=== PATIENT | female | born 1990 | race American Indian/Alaskan Native ===

== ENCOUNTER 2021-06-11 17:43 | Emergency (ER) | payer MEDICAID ==
[2021-06-11 18:08] VITALS: BP 117/69
[2021-06-11] MEDS ORDERED: ONDANSETRON 4 MG ODT TAB PO ONE (18:11)
[2021-06-11] MEDS ORDERED: LOPERAMIDE 2 MG CAP PO ONE (18:11)
--- NOTE | 2021-06-11 18:15 | Emergency Department Report ---
ED N/V/D HPI - General Chief complaint: Nausea/Vomiting/Diarrhea Stated complaint: weak dehydrated Time Seen by Provider: 06/11/21 18:11 Source: patient Mode of arrival: Ambulatory Limitations: No Limitations - History of Present Illness Initial comments: 31 year old female with past medical hx of DM and s/p pacemaker placement 2 yrs ago secondary to heart block during presents to ED today with complaints of nausea, vomiting and diarrhea and feeling dehydrated. Pt states her symptoms started yesterday. She reports 3 episodes of diarrhea today so far and about 3-4 episodes of vomiting today so far. She reports no coffee ground emesis, hematemsis, hematoschezia or melana. She was having some abdominal discomfort but she states this has resolved. She denies fever or chills. She states her daughter had similar symptoms she caught it from her daughter. She denies any UTI symptoms, vag symptoms or any additional symptoms at this time. MD complaint: nausea, vomiting, diarrhea -: days(s) (1) - Related Data Previous Rx's Medication Instructions Recorded Last Taken Type Ondansetron [Zofran Odt] 4 mg PO Q8HR #15 tab.rapdis 06/11/21 Unknown Rx Allergies Allergy/AdvReac Type Severity Reaction Status Date / Time Penicillins AdvReac Severe Anaphylaxis Verified 06/11/21 18:05 clindamycin AdvReac Anaphylaxis Verified 06/11/21 18:05 ED Review of Systems ROS: Stated complaint: weak dehydrated Other details as noted in HPI Comment: All other systems reviewed and negative Constitutional: denies: chills, fever Eyes: denies: eye pain, eye discharge, vision change ENT: denies: ear pain, throat pain Respiratory: denies: cough, orthopnea, shortness of breath, SOB with exertion, SOB at rest, stridor, wheezing Cardiovascular: denies: chest pain, palpitations, dyspnea on exertion, edema, syncope, paroxysmal nocturnal dyspnea Gastrointestinal: nausea, vomiting, diarrhea. denies: abdominal pain, constipation, hematemesis, melena, hematochezia Genitourinary: denies: urgency, dysuria, frequency, hematuria, discharge, abnormal menses, dyspareunia Musculoskeletal: denies: back pain, joint swelling, arthralgia Skin: denies: rash, lesions, change in color, change in hair/nails, pruritus Neurological: denies: headache, weakness, numbness, paresthesias, confusion, abnormal gait, vertigo Psychiatric: denies: anxiety, depression, auditory hallucinations, visual hallucinations, homicidal thoughts, suicidal thoughts Hematological/Lymphatic: denies: easy bleeding, easy bruising, swollen glands ED Past Medical Hx - Past Medical History Previous Medical History?: Yes Hx Diabetes: Yes Additional medical history: pacemaker - Surgical History Past Surgical History?: Yes Hx Pacemaker: Yes - Social History Smoking Status: Current Every Day Smoker Substance Use Type: None - Medications Home Medications: Home Medications Medication Instructions Recorded Confirmed Last Taken Type Ondansetron [Zofran Odt] 4 mg PO Q8HR #15 tab.rapdis 06/11/21 Unknown Rx ED Physical Exam - General Limitations: No Limitations General appearance: alert, in no apparent distress, obese - Head Head exam: Present: atraumatic, normocephalic, normal inspection - Eye Eye exam: Present: normal appearance, PERRL, EOMI Pupils: Present: normal accommodation - ENT ENT exam: Present: normal exam, mucous membranes moist - Neck Neck exam: Present: normal inspection, full ROM - Respiratory Respiratory exam: Present: normal lung sounds bilaterally. Absent: respiratory distress, wheezes, rales, rhonchi, stridor - Cardiovascular Cardiovascular Exam: Present: regular rate, normal rhythm, normal heart sounds - GI/Abdominal GI/Abdominal exam: Present: soft. Absent: distended, tenderness, guarding, rebound - Neurological Exam Neurological exam: Present: alert, oriented X3, CN II-XII intact, normal gait - Psychiatric Psychiatric exam: Present: normal affect, normal mood ED Course Vital Signs 06/11/21 18:06 Temperature 98.0 F Pulse Rate 61 Respiratory 18 Rate Blood Pressure 117/69 O2 Sat by Pulse 95 Oximetry ED Medical Decision Making - Medical Decision Making 31 year old female with past medical hx of DM and s/p pacemaker placement 2 yrs ago secondary to heart block during presents to ED today with complaints of nausea, vomiting and diarrhea and feeling dehydrated. Pt states her symptoms started yesterday. She reports 3 episodes of diarrhea today so far and about 3-4 episodes of vomiting today so far. She reports no coffee ground emesis, hematemsis, hematoschezia or melana. She was having some abdominal discomfort but she states this has resolved. She denies fever or chills. She states her daughter had similar symptoms she caught it from her daughter. She denies any UTI symptoms, vag symptoms or any additional symptoms at this time. Patient is well-appearing, nontoxic and not in any acute distress. She is neurologically intact with a normal gait. Patient appears well-hydrated. She has a soft nontender abdomen. Her vital signs are stable. Her fingerstick blood sugar is 225. I do not suspect severe dehydration, metabolic abnormality including DKA, appendicitis, pancreatitis, diverticulitis, sepsis or any other emergent conditions warranting testing at this time. Suspect patient symptoms related to a viral gastroenteritis at this time. Patient for any IV fluids, labs or any additional work-up at this time. Discussed suspected diagnosis and treatment plan with patient. Patient expressed understanding of instructions and agree with plan. Patient stable at time of discharge. Critical care attestation.: If time is entered above; I have spent that time in minutes in the direct care of this critically ill patient, excluding procedure time. ED Disposition Clinical Impression: Gastroenteritis Disposition: 01 HOME / SELF CARE / HOMELESS Is pt being admited?: No Does the pt Need Aspirin: No Condition: Stable Instructions: Viral Gastroenteritis, Adult, [id number] Additional Instructions: I recommend taking the zofran as prescribed for nausea and vomiting and I recommend taking immodium for diarrhea. I recommend bland diet and drinking lots of fluids. I recommend close follow up with PCP. Return to ED if worse. Prescriptions: Ondansetron [Zofran Odt] 4 mg PO Q8HR #15 tab.rapdis Referrals: EDITA CAMACHO MD [Staff Physician] - 3-5 Days [facility] [Provider Group] - 3-5 Days Forms: Work/School Release Form(ED) Time of Disposition: 18:19
== END 2021-06-11 19:15 | disposition home or self-care (01) ==
LOC: ED 17:43
DX: K52.9 Noninfective gastroenteritis and colitis, unspecified (principal); E11.8 Type 2 diabetes mellitus with unspecified complications; Z98.890 Other specified postprocedural states; F17.200 Nicotine dependence, unspecified, uncomplicated; Z88.0 Allergy status to penicillin; Z88.1 Allergy status to other antibiotic agents
CPT/HCPCS: 82962; 99282; Q0162

== ENCOUNTER 2021-09-24 19:45 | Emergency (ER) | payer MEDICAID ==
[2021-09-24 22:01] VITALS: BP 124/88
--- NOTE | 2021-09-24 22:51 | XRay Report ---
CHEST 2 VIEWS INDICATION / CLINICAL INFORMATION: Evaluate for possible displacement of pacemaker. Patient reports popping sensation along chest at sit e of pacemaker prior to arrival to ED. COMPARISON: None available. FINDINGS: SUPPORT DEVICES: A single lead right pacemaker is in expected position. HEART / MEDIASTINUM: No significant abnormality. LUNGS / PLEURA: No significant pulmonary abnormality. No significant pleural effusion. No pneumothora x. ADDITIONAL FINDINGS: No significant additional findings. IMPRESSION: 1. No acute abnormality of the chest. Signer Name: Jesus Chen MD Signed: 09/24/2021 10:47 PM Workstation Name: [id number]
== END 2021-09-25 03:00 | disposition left against medical advice (07) ==
LOC: ED 19:45
DX: Z00.00 Encounter for general adult medical examination without abnormal findings (principal); Z53.21 Procedure and treatment not carried out due to patient leaving prior to being seen by health care provider
CPT/HCPCS: 71046

== ENCOUNTER 2022-01-13 18:05 | Emergency (ER) | payer MEDICAID ==
[2022-01-13 20:15] VITALS: BP 118/71
[2022-01-13] MEDS ORDERED: METOCLOPRAMIDE 10 MG TAB PO ONE (22:13)
[2022-01-13] MEDS ORDERED: FAMOTIDINE 20 MG TAB PO ONE (22:13)
[2022-01-13 22:49] LABS: Bilirubin,Urine NEG (Negative); Blood,Urine NEG (Negative); Color,Urine Amber (Yellow); Hyaline Casts,Urine 1 /LPF; Mucus,Urine 2+ /HPF; Protein,Urine <15 mg/dL mg/dL (Negative); Urobilinogen,Urine < 2.0 mg/dL (<2.0)
[2022-01-13 22:50] LABS: HCG Qualitative,Urine Negative (Negative)
--- NOTE | 2022-01-13 23:09 | Emergency Department Report ---
ED N/V/D HPI - General Chief complaint: Nausea/Vomiting/Diarrhea Stated complaint: NAUSEA/VOMITING Source: patient Mode of arrival: Ambulatory Limitations: No Limitations - History of Present Illness Initial comments: Patient is a 31-year-old -[place] female with past medical history [id number] diabetes and cardiac arrhythmia s/p pacemaker placement who presents to the ED with complaint of acute onset persistent intermittent nausea and vomiting for the last 2 days. Patient states that she is unable to keep anything down in the last 24 hours, and that she has not been able to keep anything down in the last 24 hours. The patient stated that she has had more episodes of nausea and vomiting. Patient denies dizziness, diarrhea, fever, chills, chest pain, dysuria, urinary urgency and frequency, sore throat, headache, lightheadedness, syncope or cough. MD complaint: nausea, vomiting -: Sudden, days(s) (2) Description of Vomiting: food contents, watery, bilious Associated Abdominal Pain: No Location: diffuse Radiation: none Severity: moderate Pain Scale: 5 Quality: dull Consistency: intermittent Improves with: none Worsens with: eating, vomiting Context: possible food poisoning Associated Symptoms: denies other symptoms, loss of appetite, malaise, nausea/vomiting. denies: myalgias, chest pain, cough, diaphoresis, fever/chills, headaches, rash, dysuria, shortness of breath, syncope, weakness - Related Data Previous Rx's Medication Instructions Recorded Last Taken Type Ondansetron [Zofran Odt] 4 mg PO Q8HR #15 tab.rapdis 06/11/21 Unknown Rx Dicyclomine [Bentyl] 20 mg PO Q6H PRN #24 tablet 01/13/22 Unknown Rx Famotidine [Pepcid] 20 mg PO BID #30 tablet 01/13/22 Unknown Rx Ondansetron [Zofran Odt] 4 mg PO Q6HR PRN #20 tab.rapdis 01/13/22 Unknown Rx Allergies Allergy/AdvReac Type Severity Reaction Status Date / Time Penicillins AdvReac Severe Anaphylaxis Verified 06/11/21 18:05 clindamycin AdvReac Anaphylaxis Verified 06/11/21 18:05 ED Review of Systems ROS: Stated complaint: NAUSEA/VOMITING Other details as noted in HPI Constitutional: denies: chills, fever Eyes: denies: eye pain, eye discharge, vision change ENT: denies: ear pain, throat pain Respiratory: denies: cough, shortness of breath, wheezing Cardiovascular: denies: chest pain, palpitations Endocrine: no symptoms reported Gastrointestinal: nausea, vomiting. denies: abdominal pain, diarrhea Genitourinary: denies: urgency, dysuria, discharge Musculoskeletal: denies: back pain, joint swelling, arthralgia Skin: denies: rash, lesions Neurological: denies: headache, weakness, paresthesias Psychiatric: denies: anxiety, depression Hematological/Lymphatic: denies: easy bleeding, easy bruising ED Past Medical Hx - Past Medical History Hx Diabetes: Yes Additional medical history: pacemaker - Surgical History Hx Pacemaker: Yes - Social History Smoking Status: Never Smoker Substance Use Type: None - Medications Home Medications: Home Medications Medication Instructions Recorded Confirmed Last Taken Type Ondansetron [Zofran Odt] 4 mg PO Q8HR #15 tab.rapdis 06/11/21 Unknown Rx Dicyclomine [Bentyl] 20 mg PO Q6H PRN #24 tablet 01/13/22 Unknown Rx Famotidine [Pepcid] 20 mg PO BID #30 tablet 01/13/22 Unknown Rx Ondansetron [Zofran Odt] 4 mg PO Q6HR PRN #20 tab.rapdis 01/13/22 Unknown Rx ED Physical Exam - General Limitations: No Limitations General appearance: alert, in no apparent distress - Head Head exam: Present: atraumatic, normocephalic, normal inspection - Eye Eye exam: Present: normal appearance, PERRL, EOMI Pupils: Present: normal accommodation - ENT ENT exam: Present: normal exam, normal orophraynx, mucous membranes moist, TM's normal bilaterally, normal external ear exam - Neck Neck exam: Present: normal inspection, full ROM. Absent: tenderness - Respiratory Respiratory exam: Present: normal lung sounds bilaterally. Absent: respiratory distress, wheezes, rales, rhonchi, chest wall tenderness, accessory muscle use, decreased breath sounds - Cardiovascular Cardiovascular Exam: Present: regular rate, normal rhythm, normal heart sounds. Absent: systolic murmur, diastolic murmur, rubs, gallop - GI/Abdominal GI/Abdominal exam: Present: soft, normal bowel sounds. Absent: tenderness, guarding, rigid, hyperactive bowel sounds, hypoactive bowel sounds, organomegaly - Extremities Exam Extremities exam: Present: normal inspection, full ROM, normal capillary refill - Back Exam Back exam: Present: normal inspection, full ROM. Absent: tenderness, CVA tenderness (R), CVA tenderness (L), muscle spasm, paraspinal tenderness - Neurological Exam Neurological exam: Present: alert, oriented X3, CN II-XII intact, normal gait, reflexes normal - Psychiatric Psychiatric exam: Present: normal affect, normal mood - Skin Skin exam: Present: warm, dry, intact, normal color. Absent: rash ED Course Vital Signs 01/13/22 20:11 Temperature 98.7 F Pulse Rate 74 Respiratory 16 Rate Blood Pressure 118/71 O2 Sat by Pulse 100 Oximetry ED Medical Decision Making - Medical Decision Making This is a 31-year-old -[place] female with past medical history [id number] diabetes and cardiac arrhythmia s/p pacemaker placement who presents to the ED with complaint of acute onset persistent intermittent nausea and vomiting for the last 2 days. Patient states that she is unable to keep anything down in the last 24 hours, and that she has not been able to keep anything down in the last 24 hours. The patient stated that she has had more episodes of nausea and vomiting. In the ED, patient is alert and oriented x3 and is not in any distress. Patient is hemodynamically stable. Patient has not had any nausea or vomiting in the last 12 hours. Urinalysis is unremarkable. Patient was treated in the ED with antiemetics and antacids and on reevaluation, patient passed oral fluid challenge in the ED and was discharged home on medications. Patient was advised to follow-up with her primary care physician in 5 to 7 days for reevaluation, and meanwhile maintain a clear liquid diet for 12 to 24 hours while taking medications. Patient was advised return to the ED immediately if symptoms get worse. - Differential Diagnosis Viral gastroenteritis; UTI; ; GERD; dehydration Critical care attestation.: If time is entered above; I have spent that time in minutes in the direct care of this critically ill patient, excluding procedure time. ED Disposition Clinical Impression: Viral gastroenteritis, Nausea and vomiting in adult patient Disposition: HOME / SELF CARE / HOMELESS Is pt being admited?: No Does the pt Need Aspirin: No Condition: Stable Instructions: Viral Gastroenteritis, Adult, [id number], Nausea and Vomiting, Adult, [id number] Additional Instructions: Maintain a clear liquid diet for 12 to 24 hours, take medication as needed for nausea and vomiting, follow-up with your primary care physician in 7 to 10 days for reevaluation. Return to the ED immediately if symptoms get worse. Prescriptions: Dicyclomine [Bentyl] 20 mg PO Q6H PRN #24 tablet PRN Reason: ABDOMINAL PAIN Famotidine [Pepcid] 20 mg PO BID #30 tablet Ondansetron [Zofran Odt] 4 mg PO Q6HR PRN #20 tab.rapdis PRN Reason: Nausea Referrals: DIALLO THORNE MD [Primary Care Provider] - 3-5 Days Forms: Work/School Release Form(ED) Time of Disposition: 23:09 Print Language: GERMAN
== END 2022-01-13 23:43 | disposition home or self-care (01) ==
LOC: ED 18:05
DX: A08.4 Viral intestinal infection, unspecified (principal); R11.2 Nausea with vomiting, unspecified; E11.9 Type 2 diabetes mellitus without complications; Z88.0 Allergy status to penicillin; Z88.1 Allergy status to other antibiotic agents
CPT/HCPCS: 81001; 81025; 99283

== ENCOUNTER 2022-02-07 01:02 | Emergency (ER) | payer MEDICAID ==
[2022-02-07] MEDS ORDERED: ASPIRIN 325 MG TAB PO ONE (01:07)
[2022-02-07 01:28] LABS: Basophils # (Auto) 0.1 K/mm3 (0.0-0.1); Basophils % (Auto) 0.8 % (0.0-1.8); Eosinophils # (Auto) 0.1 K/mm3 (0.0-0.4); Eosinophils % (Auto) 1.4 % (0.0-4.3); Hematocrit 34.8 % (30.3-42.9); Hemoglobin 11.4 gm/dl (10.1-14.3); Lymphocytes # (Auto) 2.3 K/mm3 (1.2-5.4); Lymphocytes % (Auto) 31.1 % (13.4-35.0); Mean Corpuscular HGB Conc 33 % (30-34); Mean Corpuscular Volume 80 fl (79-97); Monocytes # (Auto) 0.5 K/mm3 (0.0-0.8); Monocytes % (Auto) 6.1 % (0.0-7.3); Platelet Count 393 K/mm3 (140-440); Red Blood Count 4.36 M/mm3 (3.65-5.03); Red Cell Distribution Width 15.1 % (13.2-15.2)
--- NOTE | 2022-02-07 01:36 | XRay Report ---
CHEST 2 VIEWS INDICATION / CLINICAL INFORMATION: CHEST PAIN. COMPARISON: Chest x-ray 09/24/2021 FINDINGS: SUPPORT DEVICES: Stable positioning of single lead pacemaker. HEART / MEDIASTINUM: No significant abnormality. LUNGS / PLEURA: No significant pulmonary or pleural abnormality. No pneumothorax. BONES: No significant osseous abnormality. ADDITIONAL FINDINGS: No significant additional findings. IMPRESSION: 1. No active cardiopulmonary disease. Signer Name: Cristofer Brewster II, MD Signed: 02/07/2022 1:32 AM Workstation Name: [id number]
[2022-02-07 01:57] LABS: Alanine Aminotransferase 18 units/L (7-56); Albumin 4.6 g/dL (3.9-5); Blood Urea Nitrogen 6 mg/dL (7-17); Hemolysis Index 32
[2022-02-07 02:01] LABS: BUN/Creatinine Ratio 12
[2022-02-07] MEDS ORDERED: ONDANSETRON 4 MG ODT TAB PO ONE (04:41)
[2022-02-07] MEDS ORDERED: MORPHINE 4 MG/1 ML INJ IM ONE (04:41)
[2022-02-07] MEDS ORDERED: FAMOTIDINE 20 MG TAB PO ONE (04:43)
--- NOTE | 2022-02-07 06:56 | Emergency Department Report ---
ED Chest Pain HPI - General Chief Complaint: Chest Pain Stated Complaint: CHEST PAINS Source: patient Mode of arrival: Ambulatory Limitations: No Limitations - History of Present Illness Initial Comments: Patient is a 31-year-old -Af[place] female with a history of non-insulin- dependent diabetes and cardiomyopathy status post pacemaker placement who presents to the ED with complaint of acute onset persistent epigastric pain that radiates to the anterior substernal area with nausea and vomiting intermittently for the last 2 weeks. Patient also complains of intermittent left lateral neck pain that radiates to the left shoulder for the last 2 weeks. Patient denies shortness of breath, dizziness, syncope, palpitations, change in vision, headache, diarrhea, dysuria, urinary frequency and urgency, fall, traumatic injury, heavy lifting, fever and chills or numbness and tingling or weakness of upper and lower extremities bilaterally. MD Complaint: chest pain, other (epigastric pain) -: Sudden, week(s) (2) Onset: after eating Pain Location: substernal, epigastric Pain Radiation: none Severity: severe Severity scale (0 -10): 7 Quality: aching, other (Burning) Consistency: intermittent Improves With: nothing Worsens With: eating re: nausea, vomting Other Symptoms: acid taste in mouth. denies: cough, fever, syncope, rash, leg swelling, palpitations, burping, other Treatments Prior to Arrival: none - Related Data On Oral Contraceptives: No Previous Rx's Medication Instructions Recorded Last Taken Type Ondansetron [Zofran Odt] 4 mg PO Q8HR #15 tab.rapdis 06/11/21 Unknown Rx Dicyclomine [Bentyl] 20 mg PO Q6H PRN #24 tablet 01/13/22 Unknown Rx Famotidine [Pepcid] 20 mg PO BID #30 tablet 01/13/22 Unknown Rx Ondansetron [Zofran Odt] 4 mg PO Q6HR PRN #20 tab.rapdis 01/13/22 Unknown Rx Acetaminophen [Tylenol] 500 mg PO Q6HR PRN #40 tablet 02/07/22 Unknown Rx Baclofen 20 mg PO Q12H PRN #30 tab 02/07/22 Unknown Rx Famotidine [Pepcid] 20 mg PO BID #60 tablet 02/07/22 Unknown Rx Omeprazole 40 mg PO DAILY #60 02/07/22 Unknown Rx Ondansetron [Zofran Odt] 4 mg PO Q8HR PRN #20 tab.rapdis 02/07/22 Unknown Rx Allergies Allergy/AdvReac Type Severity Reaction Status Date / Time Penicillins AdvReac Severe Anaphylaxis Verified 06/11/21 18:05 clindamycin AdvReac Anaphylaxis Verified 06/11/21 18:05 Heart Score - HEART Score History: Slightly suspicious EKG: Normal Age: < 45 Risk factors: 1-2 risk factors Troponin: < normal limit HEART Score: 1 - EKG Read Time Time EKG Completed: :10 EKG Read Time: 01:15 - Critical Actions Critical Actions: 0-3 pts:0.9-1.7%risk of adverse cardiac event.Candidate for discharge ED Review of Systems ROS: Stated complaint: CHEST PAINS Other details as noted in HPI Constitutional: denies: chills, fever Eyes: denies: eye pain, eye discharge, vision change ENT: denies: ear pain, throat pain Respiratory: denies: cough, shortness of breath, wheezing Cardiovascular: chest pain. denies: palpitations Endocrine: no symptoms reported Gastrointestinal: abdominal pain (Epigastric pain), nausea, vomiting. denies: diarrhea Genitourinary: denies: urgency, dysuria, discharge Musculoskeletal: arthralgia (Left lateral neck pain). denies: back pain, joint swelling Skin: denies: rash, lesions Neurological: denies: headache, weakness, paresthesias Psychiatric: denies: anxiety, depression Hematological/Lymphatic: denies: easy bleeding, easy bruising ED Past Medical Hx - Past Medical History Hx Congestive Heart Failure: Yes ( cardiomyopathy s/p pacemaker placement) Hx Diabetes: Yes Additional medical history: pacemaker - Surgical History Hx Pacemaker: Yes - Social History Smoking Status: Never Smoker Substance Use Type: None - Medications Home Medications: Home Medications Medication Instructions Recorded Confirmed Last Taken Type Ondansetron [Zofran Odt] 4 mg PO Q8HR #15 tab.rapdis 06/11/21 Unknown Rx Dicyclomine [Bentyl] 20 mg PO Q6H PRN #24 tablet 01/13/22 Unknown Rx Famotidine [Pepcid] 20 mg PO BID #30 tablet 01/13/22 Unknown Rx Ondansetron [Zofran Odt] 4 mg PO Q6HR PRN #20 tab.rapdis 01/13/22 Unknown Rx Acetaminophen [Tylenol] 500 mg PO Q6HR PRN #40 tablet 02/07/22 Unknown Rx Baclofen 20 mg PO Q12H PRN #30 tab 02/07/22 Unknown Rx Famotidine [Pepcid] 20 mg PO BID #60 tablet 02/07/22 Unknown Rx Omeprazole 40 mg PO DAILY #60 02/07/22 Unknown Rx Ondansetron [Zofran Odt] 4 mg PO Q8HR PRN #20 tab.rapdis 02/07/22 Unknown Rx ED Physical Exam - General Limitations: No Limitations General appearance: alert, in no apparent distress - Head Head exam: Present: atraumatic, normocephalic, normal inspection - Eye Eye exam: Present: normal appearance, PERRL, EOMI Pupils: Present: normal accommodation - ENT ENT exam: Present: normal exam, normal orophraynx, mucous membranes moist, TM's normal bilaterally, normal external ear exam - Neck Neck exam: Present: normal inspection, full ROM. Absent: tenderness - Respiratory Respiratory exam: Present: normal lung sounds bilaterally. Absent: respiratory distress, wheezes, rales, rhonchi, chest wall tenderness, accessory muscle use, decreased breath sounds - Cardiovascular Cardiovascular Exam: Present: regular rate, normal rhythm, normal heart sounds. Absent: systolic murmur, diastolic murmur, rubs, gallop - GI/Abdominal GI/Abdominal exam: Present: soft, tenderness (Palpable mild epigastric tenderness), normal bowel sounds. Absent: guarding, rebound, hyperactive bowel sounds, hypoactive bowel sounds, organomegaly - Extremities Exam Extremities exam: Present: normal inspection, full ROM, normal capillary refill - Back Exam Back exam: Present: normal inspection, full ROM. Absent: tenderness, CVA tenderness (R), CVA tenderness (L), muscle spasm, paraspinal tenderness, vertebral tenderness - Neurological Exam Neurological exam: Present: alert, oriented X3, CN II-XII intact, normal gait, reflexes normal - Psychiatric Psychiatric exam: Present: normal affect, normal mood - Skin Skin exam: Present: warm, dry, intact, normal color. Absent: rash ED Course Vital Signs 02/07/22 01:04 Temperature 98.3 F Pulse Rate 68 Respiratory 18 Rate Blood Pressure 128/91 O2 Sat by Pulse 99 Oximetry BILLY score - Billy Score Age > 65: (0) No Aspirin use within the Past 7 Days: (0) No 3 or more CAD Risk Factors: (0) No 2 or more Angina events in past 24 hrs: (0) No Known CAD with more than 50% Stenosis: (0) No Elevated Cardiac Markers: (0) No ST Deviation Greater than 0.5mm: (0) No BILLY Score: 0 ED Medical Decision Making - Lab Data Result diagrams: 02/07/22 01:09 02/07/22 01:09 - EKG Data EKG shows normal: sinus rhythm Rate: normal - EKG Data Interpretation: normal EKG 02/07/22 07:00 EKG shows sinus bradycardia with a ventricular rate of 54 bpm and nonspecific T wave abnormalities in anterior leads and prolonged QT intervals. - Radiology Data Radiology results: report reviewed, image reviewed [address] [address] XRay Report Signed Patient: ROME NORRIS MR#: [id number] : 1990 Acct:[id number] Age/Sex: 31 / F ADM Date: 02/07/22 Loc: ED Attending Dr: Ordering Physician: KAILYN JIMENEZ MD Date of Service: 02/07/22 Procedure(s): XR chest routine 2V Accession Number(s): [id number] cc: ED MD BARBARA Fluoro Time In Minutes: CHEST 2 VIEWS INDICATION / CLINICAL INFORMATION: CHEST PAIN. COMPARISON: Chest x-ray 09/24/2021 FINDINGS: SUPPORT DEVICES: Stable positioning of single lead pacemaker. HEART / MEDIASTINUM: No significant abnormality. LUNGS / PLEURA: No significant pulmonary or pleural abnormality. No pneumothorax. BONES: No significant osseous abnormality. ADDITIONAL FINDINGS: No significant additional findings. IMPRESSION: 1. No active cardiopulmonary disease. Signer Name: Ivan Suresh II, MD Signed: 02/07/2022 1:32 AM Workstation Name: [id number] Transcribed By: HINA Dictated By: IVAN SURESH II, MD Electronically Authenticated By: IVAN SURESH II, MD Signed Date/Time: 02/07/22131 DD/ 0 TD/TT: - Medical Decision Making This is a 31-year-old -[place] female with a history of obv-umzflxw-wwnleddcy diabetes and cardiomyopathy status post pacemaker placement who presents to the ED with complaint of acute onset persis tent epigastric pain that radiates to the anterior substernal area with nausea and vomiting intermittently for the last 2 weeks. Patient also complains of intermittent left lateral neck pain that radiates to the left shoulder for the last 2 weeks. In the ED, patient is alert and oriented x3 and is not in any distress. EKG shows normal sinus bradycardia with a ventricular rate of 54 bpm and prolonged QT intervals and nonspecific T wave abnormalities in anterior leads. Chest x-ray showed no acute cardiopulmonary abnormalities or pneumonitis. All lab test results were reviewed and are all nonactionable including the initial and 6-hour troponin levels. Patient's heart score is 1, and patient is PERC negative per Wells criteria. Patient was treated for pain and also given antiemetics and antacids in the ED. On reevaluation, patient pain is well controlled medication. Patient symptoms are likely due to GERD complications although other differential diagnoses were considered including ACS, PE, dissection and pneumonia. Patient was therefore discharged home on medications and advised to follow-up with her primary care physician in 3 to 5 days evaluation. Patient is advised return to the ED immediately if symptoms get worse. - Differential Diagnosis ACS; PE; dissection; pneumonia; GERD; anxiety Critical care attestation.: If time is entered above; I have spent that time in minutes in the direct care of this critically ill patient, excluding procedure time. ED Disposition Clinical Impression: Acute epigastric pain, Nonspecific chest pain, Nausea and vomiting in adult patient GERD (gastroesophageal reflux disease) Qualifiers: Esophagitis presence: esophagitis presence not specified Qualified Code(s): K21.9 - Gastro-esophageal reflux disease without esophagitis Disposition: 01 HOME / SELF CARE / HOMELESS Is pt being admited?: No Does the pt Need Aspirin: No Condition: Stable Instructions: Nonspecific Chest Pain, Adult, [id number]-[id number], Chest Wall Pain, [id number]-vw-Tthw, Gastroesophageal Reflux Disease, Adult, Pgin-nd-Divj, Nausea and Vomiting, Adult, [id number] Additional Instructions: All lab test results were reviewed and are all nonactionable including initial and 6-hour troponin levels. Chest x-ray showed no acute cardiopulmonary abnorm alities or pneumonitis. Your symptoms are likely due to acid reflux causing the symptoms radiating to the chest wall. Therefore take medications as advised, drink plenty of fluids and follow-up with your primary care physician in 7 to 10 days for reevaluation. Return to the ED immediately if symptoms get worse. Prescriptions: Acetaminophen [Tylenol] 500 mg PO Q6HR PRN #40 tablet PRN Reason: Pain , Severe (7-10) Baclofen 20 mg PO Q12H PRN #30 tab PRN Reason: Muscle Spasm Omeprazole 40 mg PO DAILY #60 Famotidine [Pepcid] 20 mg PO BID #60 tablet Ondansetron [Zofran Odt] 4 mg PO Q8HR PRN #20 tab.rapdis PRN Reason: Nausea Referrals: EDITA CAMACHO MD [Staff Physician] - 3-5 Days Forms: Work/School Release Form(ED) Time of Disposition: 06:52 Print Language: ARGENTINE
[2022-02-07 07:03] VITALS: BP 132/89
--- NOTE | 2022-02-07 10:15 | Electrocardiograph Report ---
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
--- NOTE | 2022-02-07 10:15 | Electrocardiograph Report ---
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
== END 2022-02-07 11:04 | disposition home or self-care (01) ==
LOC: ED 01:02
DX: K21.9 Gastro-esophageal reflux disease without esophagitis (principal); I50.9 Heart failure, unspecified; E11.9 Type 2 diabetes mellitus without complications; Z88.0 Allergy status to penicillin; Z88.8 Allergy status to other drugs, medicaments and biological substances; Z79.899 Other long term (current) drug therapy
CPT/HCPCS: 36415; 71046; 80053; 84484; 85025; 93005; 96372; 99284; J2270; J3490; Q0162